=== PATIENT | male | born 1965 | race Caucasian/White ===

== ENCOUNTER → 2021-02-13 | Day surgery (SDC) | payer BC ==
[~2021-02-13] MED LIST: BENADRYL ALLERG25 MG PO; NAPROXEN500 MG PO; VITAMIN D3125 MCG PO; ZESTRIL10 MG PO; ZYRTEC10 M3 PO
== END | disposition home or self-care (01) ==
LOC: OR 07:21
PROVIDERS: Surgery
PROC: 0DJD8ZZ Inspection of Lower Intestinal Tract, Via Natural or Artificial Opening Endoscopic (ICD-10-PCS; principal; 2021-02-13 11:10)
DX: Z12.11 Encounter for screening for malignant neoplasm of colon (principal); K57.30 Diverticulosis of large intestine without perforation or abscess without bleeding; E78.5 Hyperlipidemia, unspecified; I10 Essential (primary) hypertension; G47.00 Insomnia, unspecified; M54.16 Radiculopathy, lumbar region; N40.1 Benign prostatic hyperplasia with lower urinary tract symptoms; R33.8 Other retention of urine; M50.30 Other cervical disc degeneration, unspecified cervical region; M54.41 Lumbago with sciatica, right side; E53.8 Deficiency of other specified B group vitamins; E55.9 Vitamin D deficiency, unspecified; E66.9 Obesity, unspecified; Z68.33 Body mass index [BMI] 33.0-33.9, adult; Z20.822 Contact with and (suspected) exposure to COVID-19; Z79.899 Other long term (current) drug therapy
CPT/HCPCS: J2704; J7030